=== PATIENT | female | born 1995 | race Two or more races ===

== ENCOUNTER 2021-11-19 10:33 | Emergency (ER) | payer OTHER, SELFPAY ==
--- NOTE | ~2021-11-19 | CT_ITS ---
EXAMINATION: CT ABDOMEN AND PELVIS WITHOUT CONTRAST CLINICAL INFORMATION: Diarrhea. Emesis with spectral blood. Question colitis COMPARISON: None TECHNIQUE: Multidetector volumetric imaging was performed from the superior aspect of the liver through the pubic symphysis. Sagittal and coronal reformatted images were obtained on the technologist's workstation. This CT examination was performed using dose optimization techniques as appropriate, variously including the following: *Automated exposure control *Adjustment of mA and/or kV according to patient size (this includes techniques or standardized protocols for targeted exams where dose is matched to indication/reason for exam; i.e. extremities or head) *Use of iterative reconstruction technique DLP: 962 mGy-cm FINDINGS: LUNG BASES: The visualized lung bases are unremarkable. LIVER, GALLBLADDER, AND BILIARY TREE: The liver is normal in size, shape, and attenuation. No focal hepatic lesion or biliary ductal dilatation is present. The gallbladder is unremarkable with no evidence of radiopaque gallstones, gallbladder wall thickening, or obvious pericholecystic inflammatory changes. PANCREAS: Unremarkable. SPLEEN: Unremarkable. ADRENAL GLANDS: Unremarkable. KIDNEYS AND URETERS: The kidneys are normal in size, shape, and attenuation. No hydronephrosis, hydroureter, or calculi seen. No perinephric stranding. BLADDER: Unremarkable. GASTROINTESTINAL TRACT: The small and large bowel are unremarkable. The appendix is unremarkable. ABDOMINAL WALL: No significant hernia is appreciated. LYMPH NODES: Normal. VASCULAR: Normal caliber aorta. PELVIC VISCERA: The uterus and adnexa are unremarkable. OSSEOUS STRUCTURES: Unremarkable. CT/CT abdomen pelvis wo con IMPRESSION: No acute CT abnormality. No abnormal wall thickening to suggest colitis. Fleischner guidelines were followed.
--- NOTE | ~2021-11-19 | CT_ITS ---
EXAMINATION: CT OF THE HEAD AND CERVICAL SPINE WITHOUT CONTRAST CLINICAL INFORMATION: Syncope. Frontal hematoma. ? COMPARISON: None. TECHNIQUE: Contiguous axial imaging was performed from the vertex to the thoracic inlet, through the head and cervical spine, without intravenous administration of contrast. Coronal and sagittal reformatted images through the cervical spine were obtained on the technologists workstation. This CT examination was performed using dose optimization techniques as appropriate, variously including the following: *Automated exposure control *Adjustment of mA and/or kV according to patient size (this includes techniques or standardized protocols for targeted exams where dose is matched to indication/reason for exam; i.e. extremities or head) *Use of iterative reconstruction technique FINDINGS: Head: No acute intracranial hemorrhage. No extra-axial fluid collection. Fountain-white matter differentiation is preserved without evidence of acute large vessel territory ischemia. Symmetric, concordant ventricles and sulci; no hydrocephalus. No mass effect or midline shift. There is no abnormal attenuation within the brain parenchyma. The osseous structures and soft tissues are normal. No acute sinusitis. Cervical spine: Normal pre-vertebral soft tissues. No fracture seen. There is reversal of the normal cervical lordosis but no anteroretrolisthesis. No jumped or perched facets. Disk heights are maintained. Thyroid homogeneous with no nodules seen. Lung apices are clear. No cervical lymphadenopathy, mass, or fluid collection. CT/CT cervical spine wo con IMPRESSION: No acute intracranial pathology. No acute osseous abnormality of the cervical spine.
--- NOTE | ~2021-11-19 | CT_ITS ---
EXAMINATION: CT OF THE HEAD AND CERVICAL SPINE WITHOUT CONTRAST CLINICAL INFORMATION: Syncope. Frontal hematoma. ? COMPARISON: None. TECHNIQUE: Contiguous axial imaging was performed from the vertex to the thoracic inlet, through the head and cervical spine, without intravenous administration of contrast. Coronal and sagittal reformatted images through the cervical spine were obtained on the technologists workstation. This CT examination was performed using dose optimization techniques as appropriate, variously including the following: *Automated exposure control *Adjustment of mA and/or kV according to patient size (this includes techniques or standardized protocols for targeted exams where dose is matched to indication/reason for exam; i.e. extremities or head) *Use of iterative reconstruction technique FINDINGS: Head: No acute intracranial hemorrhage. No extra-axial fluid collection. Fountain-white matter differentiation is preserved without evidence of acute large vessel territory ischemia. Symmetric, concordant ventricles and sulci; no hydrocephalus. No mass effect or midline shift. There is no abnormal attenuation within the brain parenchyma. The osseous structures and soft tissues are normal. No acute sinusitis. Cervical spine: Normal pre-vertebral soft tissues. No fracture seen. There is reversal of the normal cervical lordosis but no anteroretrolisthesis. No jumped or perched facets. Disk heights are maintained. Thyroid homogeneous with no nodules seen. Lung apices are clear. No cervical lymphadenopathy, mass, or fluid collection. CT/CT head/brain wo con IMPRESSION: No acute intracranial pathology. No acute osseous abnormality of the cervical spine.
[2021-11-19 10:41] VITALS: BP 140/85; PULSE 99; RESP 18; TEMP 36.7; O2SAT 99; BMI 48.0
--- NOTE | 2021-11-19 16:10 | PC.NURSE ---
AT APPROX 1540 PT WAS IN THE TRIAGE ROOM SITTING IN A RECLINER CHAIR BEHIND A PRIVACY CURTAIN GETTING HER BLOOD DRAWN. ALL OF A SUDDEN THIS RN HEARD A LOUD NOISE AND ASKED LEXIS THE PCT IF EVERYTHING WAS ALRIGHT WHILE I OPENNED THE CURTAIN TO FIND THE PTS HEAD IN HIS LAP AND THEN PROCEEDED TO FLOP SELF ON THE FLOOR WHILE VOMITING INTO AN EMESIS BAG. PT LAYED DOWN ON THE FLOOR FACE DOWN AND REFUSED TO SPEAK FOR A FEW SECONDS WHILE THE RN ASKED PT IF SHE WAS ALRIGHT AND CHECKED HER CAROTID PULSE WHICH WAS REGULAR AT 82. I THEN CALLED FOR ASSISTANCE FROM SECURITY AND FROM OTHER NEARBY STAFF MEMBERS TO ASSIST WITH GETTING PATIENT FROM OFF THE GROUND INTO A CHAIR FOR SAFETY. I ASSISTED PATIENT TO ROLL OVER ON HER BACK AND SHE THEN BEGAN TO SPEAK AND SAID OK JUST GIVE ME A MINUTE. WITH THE ASSISTANCE FROM 3 OTHER STAFF WE WERE ABLE TO HELP PATIENT ONTO HER FEET AND SHE AMBULATED INTO A WHEELCHAIR AND WE PLACED HER RIGHT OUTSIDE THIS RN'S TRIAGE WINDOW SO I COULD MONITOR THE PATIENT MORE CLOSELY.
[2021-11-19 17:06] VITALS: BP 125/87; PULSE 96; RESP 18; TEMP 37.5; O2SAT 100
--- NOTE | 2021-11-19 17:17 | ECG_ITS ---
Test Reason : CHEST PAIN Blood Pressure : / mmHG Vent. Rate : 094 BPM Atrial Rate : 094 BPM P-R Int : 132 ms QRS Dur : 078 ms QT Int : 330 ms P-R-T Axes : 029 060 022 degrees QTc Int : 412 ms Normal sinus rhythm Normal ECG No previous ECGs available Referred By: Scott Lloyd Electronically Signed By:PATTI MOYA MD
--- NOTE | 2021-11-19 17:25 | ED.GENADULT ---
HPI - General Adult General Chief complaint: Nausea/Vomiting/Diarrhea Stated complaint: vomiting blood/fever Time Seen by Provider: 11/19/21 12:18 Source: patient Mode of arrival: ambulatory Limitations: no limitations History of Present Illness HPI narrative: 25-year-old female history of gastritis, irritable bowel syndrome, and asthma presents to the ED vomiting last night. Patient states while vomiting yesterday she had yellow emesis with specks of blood that were bright red but negative for any blood clots. Patient denies any history of alcohol abuse. Patient's history of ulcers in the past used to be on medication but has been without her meds for a while. Patient states also having diarrhea which was brown and without any blood. Patient denies any black stool. Patient states having fever last night also. Then today while labs were attempted to be drawn on her patient had vasovagal syncopal episode in triage has a small forehead hematoma. Patient denies having any chest pain, shortness of breath, abdominal pain headache before passing out. Patient saw the needle and syncopized. Patient is not on any control pills. Patient denies any recent long travel, recent surgery, coughing up blood, leg swelling, calf pain, pleurisy or any history of heart attacks or pulmonary embolus. Related Data Previous Rx's Medication Instructions Recorded famotidine 20 mg tablet (Pepcid) 20 mg PO BID 10 Days #20 tab 11/19/21 ondansetron HCl 4 mg tablet 4 mg PO Q8H PRN 4 Days #12 tab 11/19/21 oxycodone-acetaminophen 5 mg-325 1 tab PO TID PRN 3 Days #9 tab 11/19/21 mg tablet (Percocet) Allergies Allergy/AdvReac Type Severity Reaction Status Date / Time From CEFTIN Allergy Unknown NAUSEA Uncoded 05/02/20 18:14 HIVES From DEMEROL Allergy Unknown ASTHMA Uncoded 05/02/20 18:14 Review of Systems Review of Systems: Vomiting, slightly red specks in yellow emesis yesterday. Generalized abdominal pain. Syncopal episode Yes all other systems are reviewed and are negative [facility] Past Medical History Medical History (Updated 11/19/21 @ 20:47 by LESTER Mccrary) Anxiety Asthma Colitis Depression Stomach ulcer Social History Social History Advance Directives: No Advance Directives Information Provided: No Patient : No Physical Exam ED Vital Signs: Vital Signs - 24 hr 11/19/21 10:41 11/19/21 17:06 11/19/21 20:03 Temperature 98.0 F 99.5 F 98.2 F Pulse Rate 99 96 80 Respiratory Rate 18 18 20 Blood Pressure 140/85 H 125/87 103/57 L Pulse Oximetry 99 100 100 BMI result Body Mass Index 48.0 Const General: cooperative, healthy appearing, comfortable, no acute distress, well developed, alert, awake and Physically active Orientation/consciousness: patient oriented x3 [facility] Head: Yes normal to inspection, Yes No palpable skull fracture present, Yes normocephalic, Yes atraumatic and No abrasion Head images: 1. Positive for hematoma and slight tenderness. Eyes General: appearance normal, both eyes and all related structures Neck Neck: Yes normal visual inspection, Yes full ROM, Yes no lymphadenopathy, Yes no meningeal signs, Yes trachea midline, Yes supple, No anterior neck swelling and No tender Chest Chest palpation & inspection: normal inspection of the chest and normal palpation of entire chest wall Resp Effort & Inspection: normal respiratory effort and able to speak in complete sentences Auscultation: clear to auscultation bilaterally Cardio Jugular venous distension: no JVD Heart sounds: S1 normal heart sound present and S2 normal heart sound present GI Other: Rectal exam negative for hemorrhoids, alberto blood, melena, or black stool. Inspection: Yes normal to inspection and No abdominal wall ecchymosis Palpation (GI): Tenderness to palpation present (GI) (patient states generalized tenderness. no focal tenderness. ), no guarding and not rigid General: No CVA tenderness and Yes no CVA tenderness Back/Spine/Pelvis Back: no CVA tenderness, No CVA tenderness and No back tenderness Skin General skin exam: no rashes or lesions noted and elasticity normal Neuro General: patient oriented x3, gait normal and no meningeal signs Cranial nerves: Yes CN's II-XII intact bilaterally Extrem General: Yes normal to inspection and Yes full ROM Psych Appearance: grossly normal, well kempt and not disheveled Course Course Course Narrative: Due to patient having syncopal episode with 2 EKG and troponin. We will do basic labs pertinent to to make sure patient having topic . Will send patient for facial head CT and cervical spine due to syncopal episode hematoma frontal scalp. Need to drive down a CT scan check for colitis and kidney stones. Patient has blood in the urine and is not on her menstruation. Will do a dry CT scan. Reevaluation(s) Reevaluation #1: Patient labs are normal. Abdominal CT scan negative for any colitis, appendicitis, obstruction or any abdominal emergent/surgical etiology. His CT scan and cervical spine normal. EKG troponin negative. Negative STEMI. Heart score 0. Patient had vasovagal syncopal episode while having needle drawn. Not suspecting PE. Neuro exam intact. Time: 08:45 Medical Decision Making MDM Narrative Medical decision making narrative: Vasovagal syncope. Gastritis. Lab Data Result diagrams: 11/19/21 18:11 11/19/21 18:11 Labs: Lab Results 11/19/21 11/19/21 11/19/21 Range/Units 17:33 17:33 18:11 WBC (4.8-10.8) X10*3/uL RBC (4.20-5.50) X10*6/uL Hgb (12.0-16.0) g/dl Hct (37.0-47.0) % MCV (80.0-98.0) fL MCH (27.0-33.0) pg MCHC (31.0-35.0) g/dl RDW (11.0-16.0) % Plt Count (160-400) X10*3/uL MPV (9.4-12.3) fL Immature Gran % (Auto) (0.0-0.4) % Neut % (Auto) (45-73) % Lymph % (Auto) (20-40) % Newton % (Auto) (2-11) % Eos % (Auto) (0-4) % Baso % (Auto) (0-2) % Lymph # (Auto) (1.2-4.9) X10*3/uL Newton # (Auto) (0.1-1.2) X10*3/uL Eos # (Auto) (0.0-0.4) X10*3/uL Baso # (Auto) (0.0-0.2) X10*3/uL Abs Immat Gran (auto) (0.00-0.03) X10*3/uL Absolute Neuts (auto) (2.0-8.3) x10*3/uL Absolute Nucleated RBC (0.0-0.012) X10*3/uL Nucleated RBC % (auto) (0.0-0.2) /100WBC PT (9.9-13.0) SEC INR (0.9-1.1) APTT (24.1-38.0) SEC Sodium 135 (135-145) mmol/L Potassium 3.8 (3.3-5.1) mmol/L Chloride 104 (96-108) mmol/L Carbon Dioxide 23 (22-29) mmol/L Anion Gap 12 (12-20) BUN 13 (9-16) mg/dL Creatinine 0.76 (0.5-1.4) mg/dL Estim Creat Clear Calc 151.9 Estimated GFR > 60 Random Glucose 109 (60-115) mg/dL Calcium 8.8 (8.4-10.2) mg/dL Total Bilirubin 0.7 (0.0-1.0) mg/dL Direct Bilirubin 0.3 (0.0-0.5) mg/dL AST 13 (5-31) U/L ALT 14 (0-31) U/L Alkaline Phosphatase 61 (39-117) U/L Troponin I High Sens (<3.5-17.0) ng/L Total Protein 7.1 (6.5-8.0) g/dL Albumin 3.9 (3.5-5.0) g/dL Lipase 10 (8-78) U/L Beta HCG, Quant < 2 mIU/mL Urine Color YELLOW Urine Appearance CLEAR Urine pH 5.5 (5.0-8.0) Ur Specific Branson >= 1.030 H (1.005-1.025) Urine Protein NEG (NEG-TRACE) MG/DL Urine Glucose (UA) NEG (NEG) MG/DL Urine Ketones 40 (NEG) MG/DL Urine Blood 2+ H (NEG) Urine Nitrite NEG (NEG) Ur Leukocyte Esterase NEG (NEG) Urine RBC 5-9 H (0) /HPF Urine WBC 0 (0-4) /HPF Ur Squamous Epith Cells 2+ /LPF Urine Bacteria NONE /LPF Urine Mucus 4+ /LPF Urine Test NEGATIVE (NEGATIVE) Stool Occult Blood (NEGATIVE) COVID-19 ([facility]ER) (Negative) COVID-19 Clin Com Influenza Type A (LANA) (Negative) Influenza Type B (LANA) (Negative) Influenza A & B Note 11/19/21 11/19/21 11/19/21 Range/Units 18:11 18:11 18:11 WBC 8.2 (4.8-10.8) X10*3/uL RBC 4.55 (4.20-5.50) X10*6/uL Hgb 12.2 (12.0-16.0) g/dl Hct 38.2 (37.0-47.0) % MCV 84.0 (80.0-98.0) fL MCH 26.8 L (27.0-33.0) pg MCHC 31.9 (31.0-35.0) g/dl RDW 13.7 (11.0-16.0) % Plt Count 232 (160-400) X10*3/uL MPV 10.8 (9.4-12.3) fL Immature Gran % (Auto) 0.1 (0.0-0.4) % Neut % (Auto) 81.2 H (45-73) % Lymph % (Auto) 13.2 L (20-40) % Newton % (Auto) 5.2 (2-11) % Eos % (Auto) 0.1 (0-4) % Baso % (Auto) 0.2 (0-2) % Lymph # (Auto) 1.1 L (1.2-4.9) X10*3/uL Newton # (Auto) 0.4 (0.1-1.2) X10*3/uL Eos # (Auto) 0.0 (0.0-0.4) X10*3/uL Baso # (Auto) 0.0 (0.0-0.2) X10*3/uL Abs Immat Gran (auto) 0.01 (0.00-0.03) X10*3/uL Absolute Neuts (auto) 6.7 (2.0-8.3) x10*3/uL Absolute Nucleated RBC 0.000 (0.0-0.012) X10*3/uL Nucleated RBC % (auto) 0.0 (0.0-0.2) /100WBC PT (9.9-13.0) SEC INR (0.9-1.1) APTT (24.1-38.0) SEC Sodium (135-145) mmol/L Potassium (3.3-5.1) mmol/L Chloride (96-108) mmol/L Carbon Dioxide (22-29) mmol/L Anion Gap (12-20) BUN (9-16) mg/dL Creatinine (0.5-1.4) mg/dL Estim Creat Clear Calc Estimated GFR Random Glucose (60-115) mg/dL Calcium (8.4-10.2) mg/dL Total Bilirubin (0.0-1.0) mg/dL Direct Bilirubin (0.0-0.5) mg/dL AST (5-31) U/L ALT (0-31) U/L Alkaline Phosphatase (39-117) U/L Troponin I High Sens (<3.5-17.0) ng/L Total Protein (6.5-8.0) g/dL Albumin (3.5-5.0) g/dL Lipase (8-78) U/L Beta HCG, Quant mIU/mL Urine Color Urine Appearance Urine pH (5.0-8.0) Ur Specific Branson (1.005-1.025) Urine Protein (NEG-TRACE) MG/DL Urine Glucose (UA) (NEG) MG/DL Urine Ketones (NEG) MG/DL Urine Blood (NEG) Urine Nitrite (NEG) Ur Leukocyte Esterase (NEG) Urine RBC (0) /HPF Urine WBC (0-4) /HPF Ur Squamous Epith Cells /LPF Urine Bacteria /LPF Urine Mucus /LPF Urine Test (NEGATIVE) Stool Occult Blood (NEGATIVE) COVID-19 (JER) Negative (Negative) COVID-19 Clin Com See Note Influenza Type A (LANA) Negative (Negative) Influenza Type B (LANA) Negative (Negative) Influenza A & B Note See Note 11/19/21 11/19/21 11/19/21 Range/Units 18:11 18:11 18:39 WBC (4.8-10.8) X10*3/uL RBC (4.20-5.50) X10*6/uL Hgb (12.0-16.0) g/dl Hct (37.0-47.0) % MCV (80.0-98.0) fL MCH (27.0-33.0) pg MCHC (31.0-35.0) g/dl RDW (11.0-16.0) % Plt Count (160-400) X10*3/uL MPV (9.4-12.3) fL Immature Gran % (Auto) (0.0-0.4) % Neut % (Auto) (45-73) % Lymph % (Auto) (20-40) % Newton % (Auto) (2-11) % Eos % (Auto) (0-4) % Baso % (Auto) (0-2) % Lymph # (Auto) (1.2-4.9) X10*3/uL Newton # (Auto) (0.1-1.2) X10*3/uL Eos # (Auto) (0.0-0.4) X10*3/uL Baso # (Auto) (0.0-0.2) X10*3/uL Abs Immat Gran (auto) (0.00-0.03) X10*3/uL Absolute Neuts (auto) (2.0-8.3) x10*3/uL Absolute Nucleated RBC (0.0-0.012) X10*3/uL Nucleated RBC % (auto) (0.0-0.2) /100WBC PT 13.5 H (9.9-13.0) SEC INR 1.2 H (0.9-1.1) APTT 33.2 (24.1-38.0) SEC Sodium (135-145) mmol/L Potassium (3.3-5.1) mmol/L Chloride (96-108) mmol/L Carbon Dioxide (22-29) mmol/L Anion Gap (12-20) BUN (9-16) mg/dL Creatinine (0.5-1.4) mg/dL Estim Creat Clear Calc Estimated GFR Random Glucose (60-115) mg/dL Calcium (8.4-10.2) mg/dL Total Bilirubin (0.0-1.0) mg/dL Direct Bilirubin (0.0-0.5) mg/dL AST (5-31) U/L ALT (0-31) U/L Alkaline Phosphatase (39-117) U/L Troponin I High Sens < 3.5 (<3.5-17.0) ng/L Total Protein (6.5-8.0) g/dL Albumin (3.5-5.0) g/dL Lipase (8-78) U/L Beta HCG, Quant mIU/mL Urine Color Urine Appearance Urine pH (5.0-8.0) Ur Specific Branson (1.005-1.025) Urine Protein (NEG-TRACE) MG/DL Urine Glucose (UA) (NEG) MG/DL Urine Ketones (NEG) MG/DL Urine Blood (NEG) Urine Nitrite (NEG) Ur Leukocyte Esterase (NEG) Urine RBC (0) /HPF Urine WBC (0-4) /HPF Ur Squamous Epith Cells /LPF Urine Bacteria /LPF Urine Mucus /LPF Urine Test (NEGATIVE) Stool Occult Blood NEGATIVE (NEGATIVE) COVID-19 (JER) (Negative) COVID-19 Clin Com Influenza Type A (LANA) (Negative) Influenza Type B (LANA) (Negative) Influenza A & B Note ECG Data Interpretation: Normal sinus rhythm. Reticular rate 94. NM interval 132. QRS 78. QTC 412. Negative STEMI Discharge Plan Discharge Clinical Impression: Gastritis, Syncope Patient Disposition: Home, Self-Care Instructions: Gastritis (DC), Syncope (ED) Additional Instructions: Your blood work, EKG, and CT scans came back negative for heart attack, any abdominal medical/surgical etiology, UTI, COVID, influenza, brain bleed, and neck fracture. Your electrolytes and blood counts normal. Please follow-up with a cook enchilada. Return to the ED for any severe abdominal pain, rectal bleeding, vomiting blood, chest pain, shortness of breath, weakness, dizziness, or any other concerning symptoms. Prescriptions: New oxycodone-acetaminophen [Percocet] 5-325 mg tablet 1 tab PO TID PRN (Reason: pain) 3 Days Qty: 9 0RF Rx Instructions: side effect is drowsiness. Do not take at work or while driving. ondansetron HCl 4 mg tablet 4 mg PO Q8H PRN (Reason: nausea and vomiting) 4 Days Qty: 12 0RF famotidine [Pepcid] 20 mg tablet 20 mg PO BID 10 Days Qty: 20 0RF Referrals: Khadar Howard [Physician] - (Management of gastritis and irritable bowel syndrome. Seen in ED for gastritis exacerbation. ) Stand Alone Forms: Work/School Release Discharge Date/Time: 11/19/21 21:13 Print Language: [place]
[2021-11-19] MEDS: Lidocaine HCl Viscous 2 % 15 ML SOLUTION MUCOUS MEM (17:39)
[2021-11-19] MEDS: Magnesium Hydrox/Alum Hydrox 30 ML ORAL.SUSP PO (17:39)
[2021-11-19] MEDS: PHENobarb/Hyoscy/Atropine/Scop 10 ML ELIXIR PO (17:40)
[2021-11-19] MEDS: Famotidine 20 MG TABLET PO (17:40)
[2021-11-19 17:44] LABS: Appearance Urine CLEAR; Color Urine YELLOW; Glucose Urine UA NEG (NEG); Leukocyte Esterase Urine NEG (NEG); Nitrite Urine NEG (NEG); PH 5.5 (5.0-8.0); Specific Gravity - Urine >= 1.030 (1.005-1.025); UACC Culture Trigger NO; Urine Blood 2+ (NEG); Urine Ketones 40 MG/DL (NEG); Urine Protein NEG (NEG-TRACE)
[2021-11-19 17:47] LABS: UPreg QC Valid YES; Urine Pregnancy NEGATIVE (NEGATIVE)
[2021-11-19] MEDS: Acetaminophen 325 MG TABLET 650 MG PO (17:50)
[2021-11-19 17:56] LABS: Mucus Urine 4+ /LPF; Squamous Epithelial Cell Urine 2+ /LPF; WBC Urine 0 /HPF (0-4)
[2021-11-19 18:18] LABS: MANUAL DIFF FLAG NO
[2021-11-19 18:33] LABS: Basophils Percent Auto 0.2 % (0-2); Eosinophils Percent Auto 0.1 % (0-4); Hematocrit 38.2 % (37.0-47.0); Hemoglobin 12.2 g/dl (12.0-16.0); Imm Gran Abs Auto 0.01 X10*3/uL (0.00-0.03); Imm Gran Pct Auto 0.1 % (0.0-0.4); Lymphocytes Absolute Auto 1.1 X10*3/uL (1.2-4.9); Lymphocytes Percent Auto 13.2 % (20-40); Mean Corpuscular HGB Conc 31.9 g/dl (31.0-35.0); Mean Corpuscular Hemoglobin 26.8 pg (27.0-33.0); Mean Platelet Volume 10.8 fL (9.4-12.3); Monocytes Absolute Auto 0.4 X10*3/uL (0.1-1.2); Monocytes Percent Auto 5.2 % (2-11); Neutrophils Absolute Auto 6.7 x10*3/uL (2.0-8.3); Neutrophils Percent Auto 81.2 % (45-73); Platelet Count 232 X10*3/uL (160-400); Red Blood Count 4.55 X10*6/uL (4.20-5.50); Red Cell Distribution Width 13.7 % (11.0-16.0); White Blood Count 8.2 X10*3/uL (4.8-10.8)
[2021-11-19 18:34] LABS: INTERNATIONAL NORM RATIO 1.2 (0.9-1.1); Prothrombin Time 13.5 SEC (9.9-13.0)
[2021-11-19 18:36] LABS: Partial Thromboplastin Time 33.2 SEC (24.1-38.0)
[2021-11-19 18:38] LABS: COVID-19 Test Negative (Negative); IDNOW Serial# 16C4AD1C
[2021-11-19 18:40] LABS: Alanine Aminotransferase 14 U/L (0-31); Albumin Level 3.9 g/dL (3.5-5.0); Alkaline Phosphatase 61 U/L (39-117); Anion Gap 12 (12-20); Aspartate Amino Transferase 13 U/L (5-31); Bilirubin Direct 0.3 mg/dL (0.0-0.5); Bilirubin Total 0.7 mg/dL (0.0-1.0); Blood Urea Nitrogen 13 mg/dL (9-16); Calcium 8.8 mg/dL (8.4-10.2); Carbon Dioxide 23 mmol/L (22-29); Chloride 104 mmol/L (96-108); Creatinine Clr Calc Pharmacy 151.9; Estimated Glomerular Filt Rate > 60; Glucose Random 109 mg/dL (60-115); Lipase 10 U/L (8-78); Potassium 3.8 mmol/L (3.3-5.1); Sodium 135 mmol/L (135-145); Total Protein 7.1 g/dL (6.5-8.0)
[2021-11-19 18:45] LABS: Troponin-I High Sensitivity < 3.5 ng/L (<3.5-17.0)
[2021-11-19 18:46] LABS: HCG Quantitative < 2 mIU/mL
[2021-11-19 18:51] LABS: OBS Int Ctl Valid YES; OBS1 NEGATIVE (NEGATIVE)
[2021-11-19 18:54] LABS: Influenza A Negative (Negative); Influenza B2 Negative (Negative)
[2021-11-19] MEDS: Ketorolac Tromethamine 30 MG/ML VIAL IM (19:47)
[2021-11-19 20:03] VITALS: BP 103/57; PULSE 80; RESP 20; TEMP 36.8; O2SAT 100
[2021-11-19] MEDS: oxyCODONE HCl Immed Release 5 MG TABLET PO (21:09)
== END 2021-11-19 21:13 | disposition home or self-care (01) ==
PROVIDERS: Emergency Medicine; Physician Assistant; Emergency Provider Internal Medicine
DX: K29.70 Gastritis, unspecified, without bleeding (principal); R55 Syncope and collapse; R11.2 Nausea with vomiting, unspecified; R50.9 Fever, unspecified; Z79.899 Other long term (current) drug therapy; Z20.822 Contact with and (suspected) exposure to COVID-19
CPT/HCPCS: 36415; 70450; 72125; 74176; 80048; 80076; 81001; 81025; 82272; 83690; 84484; 84702; 85025; 85610; 85730; 87502; 87635; 93005; 96372; 99284; J1885